=== PATIENT | male | born 1985 | race Hispanic/Latino ===

== ENCOUNTER 2016-11-28 15:29 | Emergency (ER) | payer SELFPAY ==
[~2016-11-28] VITALS: Ht 170.2 cm; Wt 128.2 kg
[2016-11-28 17:15] VITALS: BP 139/74
[2016-11-29] MEDS ORDERED: BACTRIM DS1 TAB PO (20:16)
== END 2016-11-28 17:15 | disposition home or self-care (01) | DRG 349 ==
LOC: ED 15:29
PROC: 0D9QXZZ Drainage of Anus, External Approach (ICD-10-PCS; principal; 2016-11-28)
DX: K61.0 Anal abscess (principal); B96.20 Unspecified Escherichia coli [E. coli] as the cause of diseases classified elsewhere

== ENCOUNTER 2016-11-29 19:52 | Emergency (ER) | payer SELFPAY ==
[~2016-11-29] VITALS: Ht 170.2 cm; Wt 125.0 kg
[2016-11-29 20:06] VITALS: BP 125/77
[2016-11-29] MEDS ORDERED: BACTRIM DS1 TAB PO (20:16)
== END 2016-11-29 20:40 | disposition home or self-care (01) | DRG 395 ==
LOC: ED 19:52
DX: K61.0 Anal abscess (principal); Z48.01 Encounter for change or removal of surgical wound dressing